=== PATIENT | female | born 1960 | race Caucasian/White ===

== ENCOUNTER 2022-09-14 13:33 | Outpatient (CLI) | payer OTHER, MEDICAID, SELFPAY ==
--- NOTE | 2022-09-14 | CT_ITS ---
WS: [id number] CT TEMPORAL BONES TECHNIQUE: Noncontrast CT of the temporal bones with coronal and sagittal reformatted images. CLINICAL INFORMATION: RT OTITIS EXTERNA COMPARISON: None. DLP: 329.[address] scans at [facility] use at least one of these dose optimization techniques: automated e xposure control; mA and/or kV adjustment per patient size (includes targeted exams where dose is matc hed to clinical indication); or iterative reconstruction. FINDINGS: Mild mucosal thickening ethmoid air cells. The sinuses are otherwise well aerated. Mild mucosal thickening RIGHT sphenoid sinus. Normal posterio r nasopharynx. Normal parapharyngeal fat RIGHT: Mild mucosal RIGHT mastoid air cells. RIGHT external auditory canal is patent. Thickening of the tymp anic membrane with retraction. Small amount of soft tissue thickening in Prussak's space. Small amoun t of soft tissue thickening in the middle ear extending to the stapes footplate. Tympanic membrane is retracted. Findings likely infectious or inflammatory. No ossicular erosion. Normal scutum. Normal t egmen tympani. Semicircular canals and cochlea are normal in appearance. Normal inner ear structures. Normal vestibular aqueduct. Facial nerve recess is normal. LEFT: Mastoid air cells are well aerated. Normal external auditory canal. Ossicles are normal in appearance . Middle ear is well aerated. Normal tegmen tympani. Semicircular canals and cochlea are normal in ap pearance. Prussak's space is normal. Normal inner ear structures. Normal vestibular aqueduct. Facial nerve recess is normal. CT/CT temporal bone wo con* [id number] IMPRESSION: 1. Mild mucosal thickening ethmoid air cells and RIGHT sphenoid sinus. Paranas al sinuses are otherwise well aerated. 2. Thickening with retraction of the RIGHT tympanic membrane. Mild soft tissue thickening involving Prussak's space and involving the mesotympanum at the sta pes footplate likely chronic infectious or inflammatory etiologies. No evidence of ossicular or scutum erosion. 3. Mild mucosal thickening RIGHT mastoid tip. 4. LEFT middle ear and inner ear structures are unremarkable.
--- NOTE | 2022-09-14 14:03 | MR_ITS ---
WS: [id number] MRI BRAIN WITH HIGH-RESOLUTION IMAGING THROUGH THE INTERNAL AUDITORY CANALS WITHOUT AND WITH CONTRAST HISTORY: OTHER OTITIS EXTERNAL, R EAR COMPARISON: ct temporal bones 09/14/2022 TECHNIQUE: Multiplanar, multisequence imaging is performed through the brain. Additional 3 mm imaging performed in multiple planes through the internal auditory canal. Postcontrast imaging with 20 ml's of MultiHance. No acute intracranial hemorrhage, midline shift, edema or mass effect. Normal diffusion imaging. No hemorrhage. Mild small vessel ischemic type changes throughout the white matter. No large territory infarct. No hemorrhage. Ventricles and extra-axial spaces are normal. No inferior displacement of cerebellar tonsils. Clivus and pituitary gland are normal. Internal and external auditory canals: Unremarkable. Cranial nerves VII and VIII complexes: Unremarkable. No enhancement or mass. Cerebellopontine angles: Normal. Paranasal sinuses: Mild mucoperiosteal thickening in the ethmoid air cells. Mastoid air cells: Moderate increased fluid in the RIGHT mastoid air cells. This is asymmetric to the LEFT and extends towards the petrous bone. No abnormality detected along the eustachian tubes. Calvarium and scalp: Normal. Visualized mcgrath of [place] and dural venous sinuses demonstrate no abnormality. MR/MR iac's wo/w con* [id number] IMPRESSION: 1. Normal internal auditory canals. No signal abnormality or enhancing mass. 2. Moderate RIGHT mastoid air cell effusion. 3. Mild small vessel ischemic changes within the brain. No enhancing mass.
[2022-09-14] MEDS: gadobenate dimeglumine 20 mL vial IV (15:58)
== END 2022-09-14 13:34 | disposition home or self-care (01) ==
PROVIDERS: PCP Radiology Neuroradiology; Visit Provider Specialist
DX: H60.8X1 Other otitis externa, right ear (principal)
CPT/HCPCS: 70480; 70553; A9577